=== PATIENT | female | born 1955 | race African-American/Black ===

== ENCOUNTER 2019-06-24 14:25 | Emergency (ER) | payer MEDICAID ==
[~2019-06-24] VITALS: Ht 162.6 cm; Wt 73.0 kg
[2019-06-24 14:48] VITALS: BP 14/75
[2019-06-24] MEDS ORDERED: IBUPROFEN 600MG TABLET PO ONE (16:15)
== END 2019-06-24 16:52 | disposition left against medical advice (07) ==
LOC: ER 14:25
DX: M79.605 Pain in left leg (principal); I10 Essential (primary) hypertension
CPT/HCPCS: 99282